=== PATIENT | male | born 1955 | race Hispanic/Latino ===

== ENCOUNTER → 2020-10-11 | Outpatient (CLI) | payer MEDICARE | LOC: RAD 10:38 | PROVIDERS: ATTEND Internal Medicine | DX: R01.1 Cardiac murmur, unspecified (principal) | CPT/HCPCS: 93306 ==

== ENCOUNTER 2024-01-13 00:37 | Inpatient (IN) | payer BC, OTHER ==
[2024-01-13] VITALS (12 sets, daily range): BP systolic 137–200; BP diastolic 57–76; PULSE 81–102; RESP 16–20; TEMP 97.6–98.5; O2SAT 95–100
[~2024-01-13] VITALS: Ht 172.7 cm; Wt 78.9 kg
[2024-01-13] MEDS ORDERED: Vancomycin IV 1 GM in SODIUM CHLORIDE 0.9% 250ML 250 ML IV ONE (01:30)
[2024-01-13 01:36] LABS: BASOPHILS % 0.5 % (0.0-1.0); EOSINOPHILS # (AUTO) 0.1 (0.0-0.4); EOSINOPHILS % 1.7 % (0.0-6.0); HEMATOCRIT 30.6 % (38.2-49.6); HEMOGLOBIN 9.6 g/dL (14.0-18.0); LYMPHOCYTES # (AUTO) 1.4 (1.0-3.2); LYMPHOCYTES % 18.3 % (18.0-39.1); MEAN CORPUSCULAR HEMOGLOBIN 26.4 pg (28-32); MEAN CORPUSCULAR HGB CONC 31.4 g/dL (31-35); MEAN CORPUSCULAR VOLUME 84.1 fL (81-99); MONOCYTES # (AUTO) 0.7 (0.2-0.8); MONOCYTES % 8.8 % (4.4-11.3); NEUTROPHILS # (AUTO) 5.3 (2.1-6.9); NEUTROPHILS % 69.6 % (38.7-80.0); PLATELET COUNT 491 x10e3/uL (140-360); RED BLOOD COUNT 3.64 x10e6/uL (4.3-5.7); RED CELL DISTRIBUTION WIDTH 15.4 % (11.7-14.4); WHITE BLOOD COUNT 7.54 x10e3/uL (4.8-10.8)
[2024-01-13 01:55] LABS: ALBUMIN 3.8 g/dL (3.5-5.0); ALBUMIN/GLOBULIN RATIO 1.3 (0.8-2.0); ANION GAP 15.3 mmol/L (8-16); BILIRUBIN,TOTAL 0.4 mg/dL (0.2-1.2); CALCIUM 8.8 mg/dL (8.4-10.2); CREATININE, SERUM 3.92 mg/dL (0.72-1.25); TOTAL PROTEIN 6.8 g/dL (6.5-8.1)
[2024-01-13 02:06] LABS: POTASSIUM 5.3 mmol/L (3.5-5.1)
[2024-01-13 02:13] LABS: INR 1.14; PROTHROMBIN TIME 15.2 seconds (11.9-14.5)
[2024-01-13 02:14] LABS: PARTIAL THROMBOPLASTIN TIME 26.4 seconds (23.8-35.5)
[2024-01-13] MEDS: ONDANSETRON HCL INJ 2MG/ML 2ML 2 MG/ML VIAL IV STA (02:58)
[2024-01-13] MEDS: Morphine 4mg INJECTION 4 MG/ML INJ IV ONE (02:58)
[2024-01-13] MEDS ORDERED: SODIUM CHLORIDE FLUSH 10 ML SYR INJ PRN (03:15)
[2024-01-13] MEDS ORDERED: ONDANSETRON HCL INJ 2MG/ML 2ML 2 MG/ML VIAL IV PRN (03:15)
[2024-01-13] MEDS ORDERED: DEXTROSE 50% SYRINGE 50 ML IV PRN ×2 (03:15→15:30)
[2024-01-13] MEDS ORDERED: Morphine 4mg INJECTION 4 MG/ML INJ IV PRN (03:15)
[2024-01-13] MEDS: SODIUM CHLORIDE 0.9% 1000ML 1,000 ML IV ONE (03:38)
[2024-01-13] MEDS ORDERED: FIASP 100100 UNIT/1 (05:04)
[2024-01-13] MEDS ORDERED: BASAGLAR K100 UNIT/1 (05:04)
[2024-01-13] MEDS ORDERED: FLOMAX0.4 MG PO (05:04)
[2024-01-13] MEDS ORDERED: SODIUM BICARBO650 MG PO (05:04)
[2024-01-13] MEDS ORDERED: ASPIRIN325 MG PO (05:04)
[2024-01-13] MEDS ORDERED: ALTOPREV40 MG PO (05:04)
[2024-01-13] MEDS ORDERED: VITAMIN D350 MCG (05:04)
[2024-01-13] MEDS ORDERED: BACTRIM DS TAB1 EACH PO (05:04)
[2024-01-13] MEDS ORDERED: MUPIROCIN22 GM TOP (05:04)
[2024-01-13] MEDS ORDERED: HYDRALAZINE HC100 MG PO (05:04)
[2024-01-13] MEDS ORDERED: MAGOX 400400 MG PO (05:04)
[2024-01-13] MEDS ORDERED: FISH OIL 1,2001 EACH (05:04)
[2024-01-13] MEDS ORDERED: FEROSUL325 MG PO (05:04)
[2024-01-13] MEDS ORDERED: FENOFIBRATE134 MG (05:04)
[2024-01-13] MEDS ORDERED: FINASTERIDE5 MG PO (05:04)
[2024-01-13] MEDS ORDERED: BENICAR20 MG PO (05:04)
[2024-01-13] MEDS ORDERED: CLONIDINE HCL0.1 MG PO (05:04)
[2024-01-13] MEDS ORDERED: CLOPIDOGREL75 MG PO (05:04)
[2024-01-13] MEDS ORDERED: NIFEDIAC CC60 MG (05:04)
[2024-01-13] MEDS ORDERED: TERAZOSIN HCL5 MG PO (05:04)
[2024-01-13] MEDS: SODIUM CHLORIDE 0.45% IV SCH (14:00)
[2024-01-13] MEDS: SODIUM BICARBONATE 8.4% IV SCH (14:00)
[2024-01-13] MEDS: ASPIRIN 81 MG CHEW TAB PO SCH (14:48)
[2024-01-13] MEDS: CLOPIDOGREL BISULFATE 75 MG TAB PO SCH (14:48)
[2024-01-13] MEDS: TERAZOSIN HCL 5 MG CAP PO SCH (15:22)
[2024-01-13] MEDS: CLONIDINE HCL 0.1 MG TAB PO SCH ×2 (15:22→21:01)
[2024-01-13] MEDS: HYDRALAZINE HCL 100 MG TABLET PO SCH ×2 (15:22→21:00)
[2024-01-13] MEDS: INSULIN LISPRO 100 UNIT/1 ML 3ML VIAL SQ SCH (16:39)
[2024-01-13] MEDS: INSULIN GLARGINE 100 UNITS/ML VIAL SQ SCH (20:58)
[2024-01-13] MEDS: NIFEDIPINE CR 30 MG TAB PO SCH (21:02)
[2024-01-13] MEDS: ATORVASTATIN 40 MG TAB PO SCH (21:08)
[2024-01-14] VITALS (11 sets, daily range): BP systolic 133–164; BP diastolic 58–85; PULSE 72–87; RESP 16–18; TEMP 97.5–98.1; O2SAT 99–100
[2024-01-14 05:52] LABS: BASOPHILS % 0.5 % (0.0-1.0); EOSINOPHILS # (AUTO) 0.3 (0.0-0.4); HEMATOCRIT 28.7 % (38.2-49.6); HEMOGLOBIN 8.8 g/dL (14.0-18.0); LYMPHOCYTES # (AUTO) 1.5 (1.0-3.2); LYMPHOCYTES % 24.1 % (18.0-39.1); MEAN CORPUSCULAR HGB CONC 30.7 g/dL (31-35); MEAN CORPUSCULAR VOLUME 84.9 fL (81-99); MONOCYTES # (AUTO) 0.6 (0.2-0.8); MONOCYTES % 9.9 % (4.4-11.3); NEUTROPHILS # (AUTO) 3.8 (2.1-6.9); PLATELET COUNT 435 x10e3/uL (140-360); RED BLOOD COUNT 3.38 x10e6/uL (4.3-5.7); RED CELL DISTRIBUTION WIDTH 15.5 % (11.7-14.4); WHITE BLOOD COUNT 6.26 x10e3/uL (4.8-10.8)
[2024-01-14 06:34] LABS: ALBUMIN/GLOBULIN RATIO 1.2 (0.8-2.0); ANION GAP 9.7 mmol/L (8-16); BILIRUBIN,TOTAL 0.4 mg/dL (0.2-1.2); CALCIUM 8.7 mg/dL (8.4-10.2); CREATININE, SERUM 3.08 mg/dL (0.72-1.25); POTASSIUM 4.7 mmol/L (3.5-5.1); TOTAL PROTEIN 5.5 g/dL (6.5-8.1)
[2024-01-14 16:14] LABS: CALCIUM 8.5 mg/dL (8.4-10.2); CREATININE, SERUM 2.6 mg/dL (0.72-1.25)
[2024-01-15] VITALS (9 sets, daily range): BP systolic 137–151; BP diastolic 56–85; PULSE 80–91; RESP 16–20; TEMP 97.7–98.2; O2SAT 95–100
[2024-01-15 06:05] LABS: ANION GAP 12.3 mmol/L (8-16); CALCIUM 8.9 mg/dL (8.4-10.2); CREATININE, SERUM 2.48 mg/dL (0.72-1.25); POTASSIUM 4.3 mmol/L (3.5-5.1)
[2024-01-16 00:38] VITALS: BP 156/69; PULSE 79; RESP 17; TEMP 98.4; O2SAT 100
[2024-01-16 04:22] VITALS: BP 170/83; PULSE 82; RESP 20; TEMP 97.7; O2SAT 98
[2024-01-16 06:35] VITALS: PULSE 78; RESP 20; O2SAT 97
[2024-01-16 08:00] VITALS: BP 141/70; PULSE 85; RESP 17; TEMP 98.2; O2SAT 99
[2024-01-16 09:45] VITALS: BP 146/59; PULSE 93; RESP 17; TEMP 97.8; O2SAT 100
[2024-01-16] MEDS ORDERED: DOXYCYCLINE HY100 MG PO (10:54)
[2024-01-16] MEDS ORDERED: CEPHALEXIN500 MG PO (10:54)
[2024-01-16 13:10] VITALS: BP 139/61; PULSE 116; RESP 18; TEMP 98.6; O2SAT 98
[2024-01-16] MEDS ORDERED: ONDANSETRON HCL 4 MG ORAL DISINTEGRATING TAB PO PRN (13:30)
== END 2024-01-16 13:33 | disposition home or self-care (01) | DRG 300 ==
LOC: ER 00:50 → ERHOLD 03:02 → MED/SURG3 04:04
PROVIDERS: ADMIT Internal Medicine; ATTEND Internal Medicine
DX: E11.52 Type 2 diabetes mellitus with diabetic peripheral angiopathy with gangrene (principal); E87.20 Acidosis, unspecified; N17.9 Acute kidney failure, unspecified; E11.621 Type 2 diabetes mellitus with foot ulcer; L97.505 Non-pressure chronic ulcer of other part of unspecified foot with muscle involvement without evidence of necrosis; E11.42 Type 2 diabetes mellitus with diabetic polyneuropathy; E11.22 Type 2 diabetes mellitus with diabetic chronic kidney disease; I12.9 Hypertensive chronic kidney disease with stage 1 through stage 4 chronic kidney disease, or unspecified chronic kidney disease; I70.203 Unspecified atherosclerosis of native arteries of extremities, bilateral legs; L03.031 Cellulitis of right toe; N28.9 Disorder of kidney and ureter, unspecified; E87.5 Hyperkalemia; E78.00 Pure hypercholesterolemia, unspecified; N18.9 Chronic kidney disease, unspecified; D64.9 Anemia, unspecified; Z11.52 Encounter for screening for COVID-19; Z89.512 Acquired absence of left leg below knee
CPT/HCPCS: 36415; 76770; 80048; 80053; 82948; 83605; 85025; 85610; 85730; 87040; 93926; 94799; 96372; 99252; 99284; J1815; J2270; J2405; J2543; J7030; J7050; U0002

== ENCOUNTER 2024-02-04 10:37 | Outpatient (RCR) | payer OTHER ==
[~2024-02-04 10:37] MED LIST: ALTOPREV40 MG PO; ASPIRIN325 MG PO; BACTRIM DS TAB1 EACH PO; BASAGLAR K100 UNIT/1; BENICAR20 MG PO; CEPHALEXIN500 MG PO; CLONIDINE HCL0.1 MG PO; CLOPIDOGREL75 MG PO; DOXYCYCLINE HY100 MG PO; FENOFIBRATE134 MG; FEROSUL325 MG PO; FIASP 100100 UNIT/1; FINASTERIDE5 MG PO; FISH OIL 1,2001 EACH; FLOMAX0.4 MG PO; HYDRALAZINE HC100 MG PO; MAGOX 400400 MG PO; MUPIROCIN22 GM TOP; NIFEDIAC CC60 MG; SODIUM BICARBO650 MG PO; TERAZOSIN HCL5 MG PO; VITAMIN D350 MCG
== END 2024-02-25 ==
LOC: WCC 10:37
PROVIDERS: ATTEND Plastic Surgery
DX: E11.621 Type 2 diabetes mellitus with foot ulcer (principal); L97.512 Non-pressure chronic ulcer of other part of right foot with fat layer exposed

== ENCOUNTER → 2024-08-27 | Day surgery (SDC) | payer OTHER ==
[2024-08-25 12:09] LABS: BASOPHILS % 0.4 % (0.0-1.0); EOSINOPHILS # (AUTO) 0.1 (0.0-0.4); EOSINOPHILS % 0.7 % (0.0-6.0); HEMATOCRIT 32.8 % (38.2-49.6); HEMOGLOBIN 10.2 g/dL (14.0-18.0); LYMPHOCYTES # (AUTO) 1.4 (1.0-3.2); LYMPHOCYTES % 16.2 % (18.0-39.1); MEAN CORPUSCULAR HGB CONC 31.1 g/dL (31-35); MEAN CORPUSCULAR VOLUME 86.8 fL (81-99); MONOCYTES # (AUTO) 0.5 (0.2-0.8); MONOCYTES % 5.9 % (4.4-11.3); NEUTROPHILS # (AUTO) 6.5 (2.1-6.9); NEUTROPHILS % 76.2 % (38.7-80.0); PLATELET COUNT 451 x10e3/uL (140-360); RED BLOOD COUNT 3.78 x10e6/uL (4.3-5.7); RED CELL DISTRIBUTION WIDTH 15.8 % (11.7-14.4); WHITE BLOOD COUNT 8.54 x10e3/uL (4.8-10.8)
[2024-08-25 12:38] LABS: ANION GAP 16.4 mmol/L (8-16); CALCIUM 9.1 mg/dL (8.4-10.2); CREATININE, SERUM 2.33 mg/dL (0.72-1.25); POTASSIUM 4.4 mmol/L (3.5-5.1)
[~2024-08-27] MED LIST changes: +ACETAMINOPHEN 1000 MG/100 ML 100 ML IV ONE; +ASPIRIN EC81 MG PO; +EYE LUBRICANT OPTH OINT 3.5GM TUBE OP ONE; +FENTANYL CITRATE/PF 100MCG/2 ML INJ ONE; +LIDOCAINE HCL 2% LOCAL INJ 5 ML SDV VIAL INJ ONE; +MIDAZOLAM HCL 2 MG/2 ML VIAL ONE; +ONDANSETRON HCL INJ 2MG/ML 2ML 2 MG/ML VIAL ONE; +PROPOFOL IV EMULSION 10 MG/ML 20 ML VIAL ONE
[2024-08-27] MEDS: LACTATED RINGER'S 1,000 ML ONE (06:00)
[2024-08-27] MEDS: CEFAZOLIN SODIUM 2 GM ONE (06:00)
[2024-08-27 07:30] VITALS: TEMP 98.9
[2024-08-27 08:00] VITALS: BP 119/63; PULSE 56; RESP 16; O2SAT 98
== END | disposition home or self-care (01) ==
LOC: OR 05:10
PROVIDERS: ATTEND Podiatrist Foot & Ankle Surgery
DX: I96 Gangrene, not elsewhere classified (principal); M86.171 Other acute osteomyelitis, right ankle and foot; E11.22 Type 2 diabetes mellitus with diabetic chronic kidney disease; I12.9 Hypertensive chronic kidney disease with stage 1 through stage 4 chronic kidney disease, or unspecified chronic kidney disease; N18.4 Chronic kidney disease, stage 4 (severe); N40.0 Benign prostatic hyperplasia without lower urinary tract symptoms; E78.5 Hyperlipidemia, unspecified; Z01.810 Encounter for preprocedural cardiovascular examination; Z01.812 Encounter for preprocedural laboratory examination; Z01.818 Encounter for other preprocedural examination; Z79.4 Long term (current) use of insulin; Z79.02 Long term (current) use of antithrombotics/antiplatelets; Z79.82 Long term (current) use of aspirin; Z89.512 Acquired absence of left leg below knee
CPT/HCPCS: 28820; 36415 ×2; 71046; 80048; 82948; 85025; 88305; 88311; 93005; J0131; J2003; J2250; J2405; J2704; J3010; J7121; 88304